=== PATIENT | male | born 1980 | race African-American/Black ===

== ENCOUNTER 2023-03-18 21:01 | Emergency (ER) | payer SELFPAY ==
[~2023-03-18] VITALS: Ht 167.6 cm; Wt 68.0 kg
[2023-03-18] MEDS ORDERED: VIBRAMYCIN100 MG PO (21:56)
== END 2023-03-18 22:07 | disposition home or self-care (01) ==
LOC: ED 21:01
DX: S61.012A Laceration without foreign body of left thumb without damage to nail, initial encounter (principal); Z88.0 Allergy status to penicillin; W26.0XXA Contact with knife, initial encounter; Y93.89 Activity, other specified; Y92.89 Other specified places as the place of occurrence of the external cause; Y99.8 Other external cause status

== ENCOUNTER 2023-04-12 15:39 | Emergency (ER) | payer OTHER ==
[~2023-04-12] VITALS: Ht 167.6 cm; Wt 86.2 kg
[~2023-04-12 15:39] MED LIST: VIBRAMYCIN100 MG PO
== END 2023-04-12 16:03 | disposition home or self-care (01) ==
LOC: ED 15:39
DX: T14.8XXD Other injury of unspecified body region, subsequent encounter (principal); Z88.0 Allergy status to penicillin; X58.XXXD Exposure to other specified factors, subsequent encounter

== ENCOUNTER 2024-01-29 08:25 | Emergency (ER) | payer OTHER ==
[~2024-01-29] VITALS: Ht 167.6 cm; Wt 72.6 kg
[2024-01-29] MEDS ORDERED: Acetaminophen/Oxycodone 5 MG/325 MG TABLET PO ONE (09:00)
[2024-01-29] MEDS ORDERED: HYDROCODONE-AC1 EAC1 PO (09:13)
== END 2024-01-29 09:27 | disposition home or self-care (01) ==
LOC: ED 08:25
DX: K40.90 Unilateral inguinal hernia, without obstruction or gangrene, not specified as recurrent (principal); M79.605 Pain in left leg; Z88.0 Allergy status to penicillin